=== PATIENT | female | born 1940 | race Caucasian/White ===

== ENCOUNTER 2017-05-25 14:23 | Emergency (ER) | payer MEDICARE ==
[~2017-05-25] VITALS: Ht 152.4 cm; Wt 54.4 kg
[2017-05-25 15:11] LABS: BASOPHILS ABSOLUTE AUTO 0.06 K/mm3 (0.00-0.23); BASOPHILS PERCENT AUTO 1 % (0-2); EOSINOPHILS PERCENT AUTO 3 % (0-6); Hematocrit 37.6 % (33.0-51.0); Hemoglobin 12.3 g/dL (11.5-16.0); IMMATURE GRAN ABSOLUTE AUTO 0.02 K/mm3 (0.00-0.10); IMMATURE GRAN PERCENT AUTO 0 % (0-1); LYMPHOCYTES ABSOLUTE AUTO 1.91 K/mm3 (0.84-5.20); LYMPHOCYTES PERCENT AUTO 33 % (21-46); MONOCYTES PERCENT AUTO 14 % (4-13); Mean Corpuscular HGB Conc 32.7 g/dL (31.5-36.5); Mean Corpuscular Volume 83 fL (80-100); Mean Platelet Volume 9.3 fL (9.1-12.4); NEUTROPHILS ABSOLUTE AUTO 2.83 K/mm3 (1.96-9.15); NEUTROPHILS PERCENT AUTO 49 % (41-73); Platelet Count 331 K/mm3 (150-400); RDW Coefficient Variation 14.7 % (11.7-14.2); RDW Standard Deviation 43.9 fL (35.1-46.3); Red Blood Cell Count 4.55 M/mm3 (3.80-5.20); White Blood Cell Count 5.82 K/mm3 (4.00-11.30)
[2017-05-25 15:31] LABS: Alanine Aminotransfer (ALT/SGP 32 U/L (12-78); Albumin, Blood 3.8 g/dL (3.4-5.0); Alk Phos 37 U/L (50-136); Anion Gap 11 mmol/L (6-16); Aspartate Aminotrans (AST/SGOT 26 U/L (12-37); Bilirubin, Total 0.3 mg/dL (0.1-1.0); Blood Urea Nitrogen 14 mg/dL (8-24); Bun/Creatinine Ratio 18.1 (12.0-20.0); CO2, Blood 22 mmol/L (21-32); Calcium, Blood 9.8 mg/dL (8.5-10.1); Chloride, Blood 99 mmol/L (98-108); Creatinine, Blood 0.77 mg/dL (0.40-1.00); Globulin, Blood 3.9 g/dL (2.2-4.0); Glomerular Filtration Rate >60 (60-); Glucose, Blood 134 mg/dL (70-99); Potassium, Blood 3.8 mmol/L (3.5-5.5); Sodium, Blood 132 mmol/L (136-145); Total Protein, Blood 7.7 g/dL (6.4-8.2); Troponin I <0.015 ng/mL (0.000-0.040)
== END 2017-05-25 16:37 | disposition home or self-care (01) ==
LOC: ER 14:23
PROVIDERS: Physician Assistant
DX: S46.911A Strain of unspecified muscle, fascia and tendon at shoulder and upper arm level, right arm, initial encounter (principal); S46.912A Strain of unspecified muscle, fascia and tendon at shoulder and upper arm level, left arm, initial encounter; R07.81 Pleurodynia; X58.XXXA Exposure to other specified factors, initial encounter; Z88.1 Allergy status to other antibiotic agents
CPT/HCPCS: 36415; 71046; 80053; 84484; 85025; 93005; 93010; 99284

== ENCOUNTER 2018-04-17 08:15 | Day surgery (SDC) | payer MEDICARE ==
[~2018-04-17] VITALS: Ht 152.4 cm; Wt 55.0 kg
[~2018-04-17 08:15] MED LIST: Amlodipine Besyl5 MG PO; Excedrin Extra1 EACH PO; FENO160 PO; FISH OIL 1,0001 EAC1 PO; GABA100 PO; Glucosamine-Ch1 EACH PO; Hair, Skin & N1 EACH PO; Multivitamin1 EAC1 PO; OLMESARTAN-HCT1 EAC2 PO; Omeprazole20 M1 PO; PROLIA60 MG/1 ML SC; VITAMIN D32000 UNIT PO; ZOLP10 PO
[2018-04-17] MEDS ORDERED: EXCEDRIN MIGRAINE PO (08:49)
[2018-04-17] MEDS ORDERED: METO25ER PO ×2 (08:50→10:34)
[2018-04-17] MEDS ORDERED: ALLER-TEC D 5-1 EACH PO (08:51)
[2018-04-17] MEDS ORDERED: ASPI81CH PO (10:32)
[2018-04-17] MEDS ORDERED: ATOR40TA PO (10:33)
--- NOTE | 2018-04-17 11:11 | NUR ---
PT SPOKE WITH DR WALKER. RECEIVED NEW MEDICATIONS ORDERS-TELEPHONED TO [facility] FOR PT PICK-UP. PROVIDED FULL DISCHARGE INSTRUCTIONS REVIEW WITH EMPHASIS ON MOBILITY RESTRICTIONS AND INFECTION CONTROL. SIGNED ACKNOWLEDGEMENTS OBTAINED AND COPIES PROVIDED.
--- NOTE | 2018-04-17 14:01 | NUR ---
TR BAND REMOVED AND SITE CLEANED PRIOR TO APPLYING CLOTH DOT. IV DC'D WITH CANNULA TIP INTACT. FOLDED 2X2 GAUZE PLACED BENEATH COBAN WRAP. PT DISCHARGED WITH NO KNOWN COMPLICATIONS EVIDENT.
== END 2018-04-17 14:00 | disposition home or self-care (01) ==
LOC: MHTC 08:15 → ORSCMMR 08:15 → MHTC 14:00
DX: I25.10 Atherosclerotic heart disease of native coronary artery without angina pectoris (principal); I10 Essential (primary) hypertension; E78.5 Hyperlipidemia, unspecified; Z87.891 Personal history of nicotine dependence; Z79.899 Other long term (current) drug therapy; Z82.49 Family history of ischemic heart disease and other diseases of the circulatory system
CPT/HCPCS: 85347; 93454; 93571; 99152; 99153; C1769; C1887; C1894; J1644; J2250; J3010; J7030; Q9967

== ENCOUNTER → 2018-06-26 | Outpatient (CLI) | payer MEDICARE ==
[~2018-06-26] MED LIST changes: +ALLER-TEC D 5-1 EACH PO; +ASPI81CH PO; +ATOR40TA PO; +EXCEDRIN MIGRAINE PO; +METO25ER PO
== END | disposition home or self-care (01) ==
LOC: PLD 13:44 → LAB SHORT 13:44
DX: L81.4 Other melanin hyperpigmentation (principal)
CPT/HCPCS: 88305

== ENCOUNTER → 2021-01-14 | Outpatient (CLI) | payer MEDICARE ==
[2021-01-14 16:48] LABS: BASOPHILS ABSOLUTE AUTO 0.02 K/mm3 (0.00-0.23); BASOPHILS PERCENT AUTO 1 % (0-2); EOSINOPHILS ABSOLUTE AUTO 0.06 K/mm3 (0.00-0.68); EOSINOPHILS PERCENT AUTO 1 % (0-6); Hematocrit 33.9 % (33.0-51.0); Hemoglobin 11.7 g/dL (11.5-16.0); IMMATURE GRAN ABSOLUTE AUTO 0.01 K/mm3 (0.00-0.10); IMMATURE GRAN PERCENT AUTO 0 % (0-1); LYMPHOCYTES PERCENT AUTO 21 % (21-46); MONOCYTES ABSOLUTE AUTO 0.76 K/mm3 (0.16-1.47); MONOCYTES PERCENT AUTO 18 % (4-13); Mean Corpuscular HGB Conc 34.5 g/dL (31.5-36.5); Mean Corpuscular Volume 84 fL (80-100); Mean Platelet Volume 9.1 fL (9.1-12.4); NEUTROPHILS ABSOLUTE AUTO 2.59 K/mm3 (1.96-9.15); NEUTROPHILS PERCENT AUTO 60 % (41-73); Platelet Count 241 K/mm3 (150-400); RDW Standard Deviation 46.2 fL (35.1-46.3); Red Blood Cell Count 4.04 M/mm3 (3.80-5.20); White Blood Cell Count 4.34 K/mm3 (4.00-11.30)
[2021-01-14 16:59] LABS: Alanine Aminotransfer (ALT/SGP 42 U/L (12-78); Albumin, Blood 3.3 g/dL (3.4-5.0); Albumin/Globulin Ratio 0.8 (0.8-1.8); Alk Phos 83 U/L (40-126); Anion Gap 11 mmol/L (6-16); Aspartate Aminotrans (AST/SGOT 29 U/L (12-37); Bilirubin, Total 0.8 mg/dL (0.1-1.0); Blood Urea Nitrogen 12 mg/dL (8-24); Bun/Creatinine Ratio 14.1 (12.0-20.0); CO2, Blood 23 mmol/L (21-32); Calcium, Blood 9.4 mg/dL (8.5-10.1); Chloride, Blood 97 mmol/L (98-108); Creatinine, Blood 0.85 mg/dL (0.40-1.00); Globulin, Blood 3.9 g/dL (2.2-4.0); Glomerular Filtration Rate >60 (60-); Glucose, Blood 115 mg/dL (70-99); Potassium, Blood 2.9 mmol/L (3.5-5.5); Sodium, Blood 131 mmol/L (136-145); Total Protein, Blood 7.2 g/dL (6.4-8.2)
[2021-01-14 17:00] LABS: Troponin I <0.017 ng/mL (0.000-0.040)
== END | disposition home or self-care (01) ==
LOC: LAB SHORT 16:41
PROVIDERS: Physician Assistant
DX: J02.9 Acute pharyngitis, unspecified (principal); R07.81 Pleurodynia; Z85.3 Personal history of malignant neoplasm of breast
CPT/HCPCS: 80053; 84484; 85025; 87081

== ENCOUNTER 2021-04-22 11:15 | Day surgery (SDC) | payer MEDICARE ==
[~2021-04-22] VITALS: Ht 149.9 cm; Wt 42.3 kg
[~2021-04-22 11:15] MED LIST changes: +ALMACONE SUSPE355 ML PO; +Xylocaine5 M1 EXT; +ZORTRESS1 MG PO
[2021-04-22] MEDS ORDERED: ESCI10 PO (11:42)
[2021-04-22] MEDS ORDERED: TOPI15C (11:42)
[2021-04-22] MEDS ORDERED: Amitriptyline H10 MG PO (11:46)
[2021-04-22] MEDS ORDERED: POTA8 PO (11:46)
[2021-04-22] MEDS ORDERED: MELATONIN5 M1 PO (11:59)
[2021-04-22] MEDS ORDERED: MAGNESIUM OXID400 M1 PO (11:59)
[2021-04-22] MEDS ORDERED: KRILL OIL500 MG PO (11:59)
[2021-04-22] MEDS ORDERED: SUMA25 PO (11:59)
== END 2021-04-22 15:51 | disposition home or self-care (01) ==
LOC: ORSCSDS 11:15
PROVIDERS: Otolaryngology
PROC: 0CUV0JZ Supplement Left Vocal Cord with Synthetic Substitute, Open Approach (ICD-10-PCS; principal; 2021-04-22 12:30)
PROC: 0CJS8ZZ Inspection of Larynx, Via Natural or Artificial Opening Endoscopic (ICD-10-PCS; principal; 2021-04-22 12:30)
DX: J38.00 Paralysis of vocal cords and larynx, unspecified (principal); R13.14 Dysphagia, pharyngoesophageal phase; I10 Essential (primary) hypertension; E78.5 Hyperlipidemia, unspecified; Z87.891 Personal history of nicotine dependence; K21.9 Gastro-esophageal reflux disease without esophagitis; F41.8 Other specified anxiety disorders; Z79.899 Other long term (current) drug therapy; Z79.82 Long term (current) use of aspirin
CPT/HCPCS: A9270; C1713; J0171; J1100; J2250; J2370; J2405; J2704; J3010; J7120

== ENCOUNTER 2021-06-04 16:08 | Emergency (ER) | payer MEDICARE ==
[~2021-06-04] VITALS: Ht 147.3 cm; Wt 40.4 kg
[~2021-06-04 16:08] MED LIST changes: +Amitriptyline H10 MG PO; +ESCI10 PO; +KRILL OIL500 MG PO; +MAGNESIUM OXID400 M1 PO; +MELATONIN5 M1 PO; +POTA8 PO; +SUMA25 PO; +TOPI15C
[2021-06-04 17:33] LABS: Hematocrit 33.4 % (33.0-51.0); Hemoglobin 11.1 g/dL (11.5-16.0); Mean Corpuscular HGB Conc 33.2 g/dL (31.5-36.5); Mean Corpuscular Volume 84 fL (80-100); RDW Coefficient Variation 17.2 % (11.7-14.2); Red Blood Cell Count 3.97 M/mm3 (3.80-5.20)
[2021-06-04 17:53] LABS: Platelet Count 5 K/mm3 (150-400)
[2021-06-04 17:58] LABS: International Normalized Ratio 1.03; Prothrombin Time Results 10.8 Sec (9.7-11.5)
[2021-06-04 18:03] LABS: Alanine Aminotransfer (ALT/SGP 28 U/L (12-78); Albumin, Blood 3.4 g/dL (3.4-5.0); Albumin/Globulin Ratio 0.8 (0.8-1.8); Alk Phos 96 U/L (50-136); Anion Gap 11 mmol/L (6-16); Aspartate Aminotrans (AST/SGOT 30 U/L (12-37); Bilirubin, Total 0.4 mg/dL (0.1-1.0); Blood Urea Nitrogen 20 mg/dL (8-24); Bun/Creatinine Ratio 24.4 (12.0-20.0); CO2, Blood 26 mmol/L (21-32); Calcium, Blood 9.7 mg/dL (8.5-10.1); Chloride, Blood 96 mmol/L (98-108); Creatinine, Blood 0.82 mg/dL (0.40-1.00); Glomerular Filtration Rate >60 (60-); Glucose, Blood 133 mg/dL (70-99); Potassium, Blood 2.9 mmol/L (3.5-5.5); Sodium, Blood 133 mmol/L (136-145); Total Protein, Blood 7.4 g/dL (6.4-8.2)
[2021-06-04 18:31] LABS: BAND PERCENT MAN 1 % (0-8); BASOPHILS PERCENT MAN 0 % (0-2); EOSINOPHILS ABSOLUTE MAN 0.08 K/mm3 (0.00-0.68); EOSINOPHILS PERCENT MAN 3 % (0-6); LYMPHOCYTES % ATYPICAL MANUAL 1 % (0-0); LYMPHOCYTES PERCENT MAN 25 % (21-46); MONOCYTES ABSOLUTE MAN 0.05 K/mm3 (0.16-1.47); MONOCYTES PERCENT MAN 2 % (4-13); NEUTROPHILS ABSOLUTE MAN 1.86 K/mm3 (1.96-9.15); SEG NEUTROPHILS PERCENT MAN 68 % (41-73); TOTAL CELLS COUNTED 100
[2021-06-04] MEDS ORDERED: OLME20 PO (18:48)
[2021-06-04] MEDS ORDERED: TEMOZOLOMIDE180 MG PO (18:49)
== END 2021-06-04 21:49 | disposition home or self-care (01) ==
LOC: ER 16:08
PROVIDERS: Physician Assistant
DX: D69.6 Thrombocytopenia, unspecified (principal); D3A.098 Benign carcinoid tumors of other sites; Z88.0 Allergy status to penicillin; Z88.1 Allergy status to other antibiotic agents; Z79.899 Other long term (current) drug therapy
CPT/HCPCS: 36415; 36430; 80053; 85025; 85610; 85730; 86850; 86900; 86901; 99283-25; A9270; P9035